=== PATIENT | male | born 1955 ===

== ENCOUNTER 2018-06-09 09:59 | Emergency (ER) | payer OTHER ==
--- NOTE | 2018-06-09 11:31 | RAD ---
Date of service: 06/09/2018 PROCEDURE: Right Ankle Radiographs. HISTORY: ankle wound COMPARISON: None FINDINGS: BONES: No acute fracture or destructive bony lesion identified. JOINTS: Articular cortical sclerosis and limited joint space narrowing at the tibiotalar and subtalar joints compatible with degenerative joint disease. SOFT TISSUES: Vascular calcifications are identified posteriorly. Additional calcifications may reflect small phleboliths in the subcutaneous fat peripheral to the distal tibia and fibula. OTHER FINDINGS: None. IMPRESSION: No acute fracture or dislocation. 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
--- NOTE | 2018-06-09 11:37 | CP.PCM.CON ---
History of Present Illness - History of Present Illness History of Present Illness: Podiatry consult notes for attending Dr. Rock 63 y/o M patient PMH of DM, HTN and skin cancer seen and evaluated in the ED for pain and ulcer in the back of his right lower leg. Patient was sitting in his bed comfortably and not i n acute distress. Patient is AAO X 3, Indonesian speaking. Patient states that he is from [place]. just moved to the [facility] recently. he states that 2 months ago he got new shoe which rub against the back of his right lower leg causing blister. Patient state that by that time he self medicated himself by amoxicillin 500 mg tablets he brought from [place]. Patient states that he became better and the blister site started to heal. Patient states that last he developed pain in the back of his right heel at the same site of the blister. The pain was increasing. Patient states that yesterday night ot was 10/10 for which he use 2 pain medications he brought from [place] and the pain went down to 7/10. Patient denies any recent F/N/ V/C or SOB. Patient denies any other pedal complaints. PMH: DM, HTN and Skin Cancer. PSH: Skin cancer excision and reconstructive surgery in his face. Allergies: NKDA. Social Hx: Denies smoking, ETOH or illicit drug use. 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 Cap refill < 3 sec in all digits. Temp gradient warm to cool from proximal to distal. Neuro: Gross and protective sensations are intact b/l. Derm: Small healed ulcer in the back of the right Achilles tendon. The ulcer is covered with a scab measures 0.5 cm X 0.5 cm painted with Microchrome and surrounded by area of mild erythema. No drainage, No malodor, No swelling or fluctuance, no undermining, no tracking to bone, no tunneling. MSK: Pain on palpating the ulcer site in the back of the right Achilles tendon. Muscle power intact 5/5 in all groups b/l. restricted ankle DF with knee extended b/l. - Neurological Exam Neurological exam: Alert, Oriented x3 - Psychiatric Exam Psychiatric exam: Normal Affect, Normal Mood Results - Vital Signs Recent Vital Signs: Last Vital Signs Temp 97.5 F L 06/09/18 10:04 Pulse 86 06/09/18 10:04 Resp 18 06/09/18 10:04 BP 135/74 06/09/18 10:04 Pulse Ox 98 06/09/18 10:04 - Labs Result Diagrams: 06/09/18 11:25 Labs: Laboratory Results - last 24 hr 06/09/18 10:17 POC Glucose (mg/dL) 92 Assessment & Plan - Assessment and Plan (Free Text) Assessment: 63 y/o M patient jame nd evaluated in the ED for pain and healed ulcer in the back of the right lower leg. Plan: Patient seen and evaluated in the ED. Right ankle X-ray reviewed; Shows no acute fractures or dislocation. Mild arthretic changes in the ankle and Subtalar joints. Chart, vitals and labs reviewed; Afebrile, No leukocytosis Rx; Keflex 500 mg tablets, TID prescribed by the ED doctor. Wound dressed using bacitracin, gauze and ori. Patient instructed to apply bacitracin daily and cover the wound with band-aid. Patient expressed verbal understanding patient to follow up in podiatry clinic or wound care center. - Date & Time Date: 06/09/18 Time: 11:43
--- NOTE | 2018-06-09 11:41 | ED PDOC ---
Lower Extremity Pain/Injury Time Seen by Provider: 06/09/18 10:26 Chief Complaint (Nursing): Abnormal Skin Integrity Chief Complaint (Provider): Abnormal Skin Integrity History Per: Patient History/Exam Limitations: no limitations Onset/Duration Of Symptoms: Days (x60) Current Symptoms Are (Timing): Still Present Additional Complaint(s): 63 y/o male with PMHx of Insulin Dependent Diabetes presents to the ED complaining of right foot pain, onset two months ago. Patient states he sustained an ulceration to his right foot two months ago associated with pain. Patient reports of taking antibiotics that he bought over the counter from [place]. Denies discharge, fever, other complaints. PMD: None Provided Past Medical History Reviewed: Historical Data, Nursing Documentation, Vital Signs Vital Signs: Last Vital Signs Temp 97.5 F L 06/09/18 10:04 Pulse 86 06/09/18 10:04 Resp 18 06/09/18 10:04 BP 135/74 06/09/18 10:04 Pulse Ox 98 06/09/18 10:04 - Medical History PMH: Asthma, Diabetes (IIDM), HTN - Surgical History Surgical History: Appendectomy Other surgeries: Multiple Skin Grafts s/p [place] - Family History Family History: States: Unknown Family Hx - Home Medications Home Medications: Ambulatory Orders Medication Instructions Recorded Cephalexin [cephalexin] 500 mg PO BID #20 cap 06/09/18 - Allergies Allergies/Adverse Reactions: Allergies Allergy/AdvReac Type Severity Reaction Status Date / Time No Known Allergies Allergy Verified 06/09/18 10:17 Review of Systems ROS Statement: Except As Marked, All Systems Reviewed And Found Negative Constitutional: Negative for: Fever Musculoskeletal: Positive for: Foot Pain (Right ) Skin: Positive for: Other (ulceration on the right foot ) Physical Exam - Reviewed Nursing Documentation Reviewed: Yes Vital Signs Reviewed: Yes - Physical Exam Appears: Positive for: No Acute Distress Extremity: Positive for: Normal ROM (of legs), Tenderness (Tenderness around area of ulceration on right foot), Other (2 cm wound above the right calcaneus posterior ankle. The ulcer is healing producing a scar. No discharge. Mild erythema. ). Negative for: Deformity, Swelling Neurologic/Psych: Positive for: Alert, Oriented (and comfortable ) - Laboratory Results Result Diagrams: 06/09/18 11:25 - ECG O2 Sat by Pulse Oximetry: 98 (RA) Pulse Ox Interpretation: Normal Medical Decision Making Medical Decision Making: Time: 1039 Impression: Foot Ulceration Plan: -- Ankle Right 3 View XR -- Podiatry Consult Time: 1109 Plan: -- CBC with differentials Time: 1129 ANKLE XR RESULTS FINDINGS: BONES: No acute fracture or destructive bony lesion identified. JOINTS: Articular cortical sclerosis and limited joint space narrowing at the tibiotalar and subtalar joints compatible with degenerative joint disease. SOFT TISSUES: Vascular calcifications are identified posteriorly. Additional calcifications may reflect small phleboliths in the subcutaneous fat peripheral to the distal tibia and fibula. OTHER FINDINGS: None. IMPRESSION: No acute fracture or dislocation. 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 1130 Patient seen by podiatry resident and discussed with Dr Zayas. Patient is stable for discharge with keflex and follow up with wound care. Scribe Attestation: Documented by Shereen Ledbetter acting as a scribe for Dr.Gerasim Meng MD. Provider Scribe Attestation: All medical record entries made by the Scribe were at my direction and personally dictated by me. I have reviewed the chart and agree that the record accurately reflects my personal performance of the history, physical exam, medical decision making, and the department course for this patient. I have also personally directed, reviewed, and agree with the discharge instructions and disposition. Disposition - Clinical Impression Clinical Impression: Ulcer of right foot - Patient ED Disposition Is Patient to be Admitted: No Doctor Will See Patient In The: Office Counseled Patient/Family Regarding: Studies Performed, Diagnosis, Need For Followup - Disposition Referrals: [facility] [Outside] [facility] [place] [Outside] Disposition: Routine/Home Disposition Time: 13:17 Condition: GOOD Additional Instructions: Take your medications as instructed. Follow up with your PCP in 2-3 days. Prescriptions: Cephalexin [cephalexin] 500 mg PO BID #20 cap Instructions: Diabetic Foot Ulcer (DC) Print Language: BELARUSIAN
[2018-06-09 11:45] LABS: BASO % 0.7 % (0.0-2.0); EOS % 0.4 % (0.0-4.0); HEMOGLOBIN 12.6 g/dL (12.0-18.0); LYMPH # 0.8 K/uL (1.0-4.3); LYMPH % 13.7 % (20.0-40.0); MEAN CELL VOLUME 90.3 fl (80.0-94.0); MEAN CORPUSCULAR HEMOGLOBIN 30.5 pg (27.0-31.0); MEAN CORPUSCULAR HGB CONC 33.8 g/dL (33.0-37.0); MEAN PLATELET VOLUME 8.1 fl (7.2-11.7); MONO # 0.4 K/uL (0.0-0.8); MONO % 7.4 % (0.0-10.0); NEUT # 4.4 K/uL (1.8-7.0); NEUT % 77.8 % (50.0-75.0); NRBC % 0.1 % (0.0-0.0); RBC 4.13 Mil/uL (4.40-5.90); WHITE BLOOD COUNT 5.7 K/uL (4.8-10.8)
[2018-06-09 13:53] VITALS: BP 138/72; PULSE 69; RESP 16; TEMP 97.8
[2018-06-09 15:08] VITALS: O2SAT 98
== END 2018-06-09 13:45 | disposition home or self-care (01) ==
LOC: H.ER 09:59
DX: L97.511 Non-pressure chronic ulcer of other part of right foot limited to breakdown of skin (principal); E11.621 Type 2 diabetes mellitus with foot ulcer; I10 Essential (primary) hypertension; L97.519 Non-pressure chronic ulcer of other part of right foot with unspecified severity